=== PATIENT | female | born 1990 | race Caucasian/White ===

== ENCOUNTER 2020-05-07 11:47 | Emergency (ER) | payer OTHER, SELFPAY ==
[2020-05-07 12:09] VITALS: BP 128/93; PULSE 102; RESP 17; TEMP 36.7; O2SAT 96
--- NOTE | 2020-05-07 12:28 | ED.GENADULT ---
HPI - General Adult General Chief complaint: Upper Respiratory Infection Stated complaint: Sore Throat Time Seen by Provider: 05/07/20 12:26 Source: patient and RN notes reviewed Mode of arrival: ambulatory Limitations: no limitations History of Present Illness HPI narrative: 29-year-old female presents with complaints of sore throat and headache (not the worst of her life) for the past 2 days. Addie reports increase symptoms with white patches to throat over the past 24 hours. Ibuprofen (last this morning at 11 AM), Chloraseptic spray, throat lozenges, and gargling with salt water with little relief. No high fevers, drooling, neck or throat swelling. Pain is bilateral. Hurts to swallow. Exacerbation factors consist of eating and drinking. No rhinorrhea or nasal congestion. No voice change. No nausea, vomiting, or abdominal pain. Tolerating liquids well. Denies dyspnea, difficulty swallowing, jaw pain, dental pain, facial pain, foreign body sensation, and rash. LMP hysterectomy. Remains active. The patient reports she was diagnosed with COVID-19 03/20, no recent diagnosis. The patient reports she is not waiting for the results of a COVID-19 lab test. The patient reports she do not have chills, weakness, or fatigue. The patient reports she do not have a new or worsening cough or shortness of breath. Denies chest pain. The patient reports she do not have any loss of taste or smell or diarrhea. Denies recent traveling. Denies concerns for COVID-19 or exposures been home with limited outdoor exposure except for essential household needs, work, and return home. At this time, patient is not suspected of having COVID-19. Some parts of this dictation were generated by voice recognition software and may contain typographical and/or grammatical inaccuracies. Related Data Home Medications Medication Instructions Recorded Confirmed cholecalciferol (vitamin D3) 25 mcg PO DAILY 05/07/20 05/07/20 [Vitamin D3] Allergies Allergy/AdvReac Type Severity Reaction Status Date / Time PROCHLORPERAZINE EDISYLATE Allergy Severe Anaphylaxis Uncoded 05/07/20 12:02 PROCHLORPERAZINE MALEATE Allergy Severe Anaphylaxis Uncoded 05/07/20 12:02 Review of Systems Review of Systems: Narrative: CONSTITUTIONAL: Denies fever, chills, sweats. EYES: Denies visual changes, redness, discharge. ENT: Denies rhinorrhea, otalgia, congestion. Complains of sore throat with white patches. CARDIOVASCULAR: Denies chest pain, palpitations, edema. RESPIRATORY: Denies dyspnea, wheezing, cough. GASTROINTESTINAL: Denies abdominal pain, nausea, vomiting, diarrhea. SKIN: Denies rash or itching. MUSCULOSKELETAL: Denies acute back pain, joint pain, or myalgia. NEUROLOGIC: Denies numbness or focal weakness. Complains of headache. PSYCHIATRIC: Denies anxiety or depression. All systems reviewed & are unremarkable except as noted in HPI and below. [facility] Past Medical History Medical History (Updated 05/07/20 @ 12:55 by TABATHA Pires) Ankle fracture Bilateral Endometriosis Fibroids History of gastroesophageal reflux (GERD) Kidney stones Renal disease Urinary tract bacterial infections Surgical History Surgical History (Updated 05/07/20 @ 16:06 by TABATHA Pires) History of hysterectomy Addie mejia done in her twenties due to fibroids and having a precancerous pap result Family History Family History (Updated 05/07/20 @ 12:56 by TABATHA Pires) Father Alive and well Mother Diabetes mellitus Social History Social History (Updated 05/07/20 @ 12:56 by TABATHA Pires) Smoking status: Former smoker Tobacco type: cigarettes Second hand tobacco smoke exposure: Yes (spouse) Alcohol intake: current Substance use: never Substance use type: does not use Living arrangements: with family Occupation/Education: occupation Gender identity (if verbalized by the patient): Female Sexual [place]
== END 2020-05-07 12:51 | disposition home or self-care (01) ==
PROVIDERS: Emergency Provider Nurse Practitioner Family
DX: J02.9 Acute pharyngitis, unspecified (principal); Z87.891 Personal history of nicotine dependence; N80.9 Endometriosis, unspecified; K21.9 Gastro-esophageal reflux disease without esophagitis
CPT/HCPCS: 87081; 87804; 87880; 99213; G0463

== ENCOUNTER 2024-09-07 15:07 | Outpatient (CLI) | payer BC, SELFPAY ==
--- NOTE | ~2024-09-07 | XR_ITS ---
EXAMINATION: XR abdomen obstructive series DATE: 09/07/2024 15:32 INDICATION: Nephrolithiasis. TECHNIQUE: Supine and upright views of the abdomen. FINDINGS: Ultrasound dated 12/11/2011 The visualized lung parenchyma is normal.. There is a nonobstructive bowel gas pattern. Gas and stool are seen throughout the colon to the level of the rectum. There is no free air. No renal stones maren ntified. IMPRESSION: 1. No acute abdominal abnormality. Reviewed, dictated and finalized at location B.
== END 2024-09-07 15:08 | disposition home or self-care (01) ==
PROVIDERS: PCP Internal Medicine Nephrology; Visit Provider Internal Medicine Nephrology
DX: N20.0 Calculus of kidney (principal); Z13.1 Encounter for screening for diabetes mellitus
CPT/HCPCS: 74019